=== PATIENT | male | born 1965 | race Caucasian/White ===

== ENCOUNTER → 2017-04-15 | Day surgery (SDC) | payer OTHER ==
[~2017-04-15] MED LIST: BUPIVACAINE/EPINEPHRINE 0.25% PF 10 ML VIAL ONE; DIPH50TA; KETOROLAC TROMETHAMINE 30 MG/ML (IVP) VIAL IV PUSH ONE; LACTATED RINGER'S 1000 ML INJ 1,000 ML ONE; MIDAZOLAM HCL 2 MG/2 ML VIAL ONE; ONDANSETRON HCL 4 MG/2 ML VIAL IV PUSH ONE; PRED5; PROPOFOL 200 MG/20 ML AMP IV ONE; ceFAZolin 2 GM PREMIX 50 ML ONE
--- NOTE | 2017-04-15 10:55 | TN ---
cc: MORGAN ALVARENGA M.D. DATE OF SURGERY: 04/15/2017 PREOPERATIVE DIAGNOSIS Left inguinal hernia. POSTOPERATIVE DIAGNOSIS Left inguinal hernia, direct and indirect defects. PROCEDURE Laparoscopic repair left inguinal hernia with mesh. SURGEON Dr. Morgan Alvarenga [employer] EXAMINER Mireille Eddy, MS III ANESTHESIA General. INDICATIONS This is a very pleasant 51-year-old gentleman who has had prior open right inguinal hernia repair in the past, who has developed a symptomatic left inguinal hernia. Plans made for operative repair via the laparoscopic approach. INTRAOPERATIVE FINDINGS Direct hernia defect with incarcerated preperitoneal fatty tissue. Left indirect inguinal hernia defect with spermatic cord lipoma. ESTIMATED BLOOD LOSS Less than 5 mL. DESCRIPTION OF PROCEDURE IN DETAIL The patient was identified as Gerry Jackson, taken to the operating room and placed in supine position. Sequential compression devices were placed on bilateral lower extremities. Following induction of adequate general anesthesia, the patient's lower abdomen was prepped and draped in the usual sterile fashion with Betadine. A timeout procedure was performed. Following completion of the timeout procedure to everyone's satisfaction within the room, 0.25% Marcaine with epinephrine was placed at each incision site. An infraumbilical 2 cm midline incision was carried out with a scalpel and dissection continued posteriorly to the level of the anterior rectus fascia on the left side. This was incised at its medial border using a scalpel and a preperitoneal plane was developed with the surgeon's finger posteriorly to the rectus muscle directed towards the pubic symphysis. The preperitoneal dissecting balloon was placed in the preperitoneal space and with the patient in slight Trendelenburg position under direct laparoscopic view, was inflated to a total of approximately 30 pumps. This allowed for identification of the George's ligament, a direct hernia pseudo-sac and the inferior epigastric vessels. The balloon was desufflated and removed and a structural balloon trocar placed in the preperitoneal space, its balloon inflated with CO2 insufflation until a level of 11 mmHg ensued. Two infraumbilical midline 5 mm trocars were then placed in the preperitoneal space under direct laparoscopic view after incision of the skin with a scalpel. Attention was turned first to reducing the direct hernia pseudo-sac from the incarcerated preperitoneal fatty tissue. Blunt dissection lateral and posterior to the spermatic cord was then performed. Adherent peritoneum was reduced to the base of the spermatic cord. A spermatic cord lipoma was reduced from the inguinal canal into the preperitoneal space using blunt graspers. Photograph was taken of the defect of the direct hernia. Direct hernia pseudo-sac was tacked to the anterior Geogre's ligament with two tacks. A 4 x 6 inch piece of Atrium ProLite mesh was cut from a 6 x 6 inch piece with an anterolateral slit placed around the spermatic cord and tacked into position with a tacking device. Tacks were placed to approximate the anterolateral slit on the anterior border of George's ligament and the superior border of the mesh. Care was taken to avoid tack placement inferolaterally to avoid cutaneous nerve injury. A 2 x 5 inch piece of the mesh was placed across the anterolateral slit and held in position with the ProTack device, again avoiding tack placement inferolaterally. Photographs were taken of the completed repair. The remaining local anesthetic was placed in the preperitoneal space. The trocars were removed under direct visualization. There was evidence of bleeding from the trocar sites. The preperitoneal space was desufflated through the infraumbilical port taking care to hold the inferolateral mesh against the abdominal wall as the peritoneum lay inside the mesh. The infraumbilical trocars were removed and the anterior rectus fascial incision was closed with a running 2-0 Vicryl suture. Port site skin incisions were approximated with 4-0 Monocryl subcuticular sutures. Dressings were applied with Mastisol and half-inch brown Steri-Strips. The patient tolerated the procedure without apparent complication. Sponge, needle and instrument counts were correct at the end of the case. MD HARPER Burnette/MICHAEL /10:37 AM /10:44 AM
== END | disposition home or self-care (01) ==
LOC: ESDC 08:12
PROVIDERS: ATTEND Surgery Trauma Surgery
DX: K40.90 Unilateral inguinal hernia, without obstruction or gangrene, not specified as recurrent (principal)
CPT/HCPCS: 00840; 49650; C1727; C1781; J0690; J1885; J2250; J2405; J3010; J7120